=== PATIENT | female | born 1970 | race Caucasian/White ===

== ENCOUNTER → 2017-05-06 12:11 | Outpatient (CLI) | payer OTHER, SELFPAY ==
[2017-05-06 13:33] LABS: Estradiol 47.9 pg/mL
[2017-05-06 13:49] LABS: Progesterone Level 0.15 ng/mL (See Comment)
[2017-05-08 13:01] LABS: HPV Reflexed? NOT INDICATED
== END ==
PROVIDERS: Visit Provider Obstetrics & Gynecology
DX: N95.1 Menopausal and female climacteric states (principal); Z12.4 Encounter for screening for malignant neoplasm of cervix
CPT/HCPCS: 36415; 82670; 84144; 88175; G0145

== ENCOUNTER → 2018-09-09 | Outpatient (CLI) | payer OTHER, SELFPAY ==
[2018-09-09 14:06] LABS: Estradiol 38.2 pg/mL
[2018-09-09 14:11] LABS: Progesterone Level 0.09 ng/mL (See Comment)
[2018-10-01 13:52] LABS: HPV Reflexed? NOT INDICATED
== END | disposition home or self-care (01) ==
LOC: WOBLAB 13:04
PROVIDERS: Visit Provider Obstetrics & Gynecology
DX: Z12.4 Encounter for screening for malignant neoplasm of cervix (principal); Z78.0 Asymptomatic menopausal state
CPT/HCPCS: 36415; 82670; 84144; 88175; G0145

== ENCOUNTER → 2019-09-29 | Outpatient (CLI) | payer OTHER, SELFPAY ==
[2019-09-29 16:07] LABS: Estradiol 23.9 pg/mL
[2019-09-29 17:59] LABS: Progesterone Level < 0.21 ng/mL (See Comment)
== END | disposition home or self-care (01) ==
LOC: WOBLAB 14:09
PROVIDERS: Visit Provider Obstetrics & Gynecology
DX: N95.1 Menopausal and female climacteric states (principal)
CPT/HCPCS: 36415; 82670; 84144